=== PATIENT | female | born 1955 | race African-American/Black ===

== ENCOUNTER 2017-05-31 16:17 | Emergency (ER) | payer OTHER ==
[~2017-05-31] VITALS: Ht 152.4 cm; Wt 45.4 kg
[2017-05-31 16:39] VITALS: BP 145/77
[2017-05-31 17:14] LABS: APPEARANCE,URINE Clear (CLEAR); BILIRUBIN,URINE Negative (NEGATIVE); BLOOD, URINE Negative Ery/uL (NEGATIVE); COLOR,URINE Yellow (YELLOW); KETONES,URINE 40 (NEGATIVE); LEUKOCYTE ESTERASE ,URINE Negative (NEGATIVE); NITRITE, URINE Positive (NEGATIVE); PH,URINE 8.5 (5.0-8.0); PROTEIN,URINE Negative (NEGATIVE); UGLUCOSE Negative (NEGATIVE); UROBILINOGEN,URINE 0.2 EU/dL (0.2)
[2017-05-31 17:33] LABS: BACTERIA,URINE 2+ /HPF (None Seen); RBC,URINE NONE SEEN /HPF (0-2); SQUAMOUS EPITHELIAL CELL,UR Few /HPF (None Seen)
== END 2017-05-31 17:52 | disposition home or self-care (01) ==
LOC: ER 16:18
DX: N39.0 Urinary tract infection, site not specified (principal)
CPT/HCPCS: 81000-TC; 87086-TC; 87186-TC; A4606; Z7610